=== PATIENT | male | born 1960 | race Caucasian/White ===

== ENCOUNTER 2017-05-08 14:17 | Emergency (ER) | payer MEDICARE, MEDICAID ==
[2017-05-08 15:16] VITALS: BP 121/76
--- NOTE | 2017-05-08 15:16 | ER Document Report ---
ED Medical Screen (RME) - General Mode of Arrival: Wheelchair Information source: Patient TRAVEL OUTSIDE OF THE [place] IN LAST 30 DAYS: No - HPI Patient complains to provider of: Left flank pain Onset: Other - 3 days ago Associated Symptoms: Other - see notes above <TANNER SADLER - Last Filed: 05/08/17 15:29> <BABITAАНДРЕЙMIRLANDE - Last Filed: 05/08/17 18:17> - General Chief Complaint: Flank Pain Stated Complaint: LEFT SIDE PAIN Time Seen by Provider: 05/08/17 14:53 Notes: 56 year old male with history of CVA presents to the ED complaining of sharp left flank pain that started 3 days ago. Patient reports he has never had back pain like this before. Denies history of kidney stones. Patient additionally complains of dysuria, but denies fever, nausea, or vomiting. (TANNER SADLER) - Related Data Allergies/Adverse Reactions: aspirin [Aspirin] Allergy (Unknown, Verified 05/08/17 14:20) Past Medical History - General Information source: Patient - Social History Chew tobacco use (# tins/day): No Frequency of alcohol use: None Drug Abuse: None - Past Medical History Cardiac Medical History: Reports: Hx Hypertension Denies: Hx Heart Attack Pulmonary Medical History: Reports: Hx COPD, Hx Pneumonia Denies: Hx Asthma, Hx Tuberculosis Neurological Medical History: Reports: Hx Cerebrovascular Accident - 1999 right deficitComment Only: Hx Seizures - states no seizure but takes meds for them Endocrine Medical History: Reports: Hx Diabetes Mellitus Type 2 Renal/ Medical History: Reports: Hx End Stage Renal Disease - stage 3. Denies : Hx Peritoneal Dialysis GI Medical History: Reports: Hx Gastroesophageal Reflux Disease. Denies: Hx Hepatitis, Hx Hiatal Hernia, Hx Ulcer Musculoskeltal Medical History: Reports Hx Arthritis - feet Psychiatric Medical History: Reports: Hx Anxiety, Hx Depression Infectious Medical History: Denies: Hx Hepatitis Past Surgical History: Reports: Hx Abdominal Surgery - gastric bypass, Hx Appendectomy - 1966, Hx Cholecystectomy, Hx Gastric Bypass Surgery - 2004, Hx Testicular Surgery. Denies: Hx Open Heart Surgery, Hx Pacemaker - Immunizations Hx Diphtheria, Pertussis, Tetanus Vaccination: Yes <TANNER SADLER - Last Filed: 05/08/17 15:29> Review of Systems - Review of Systems Constitutional: No symptoms reported. denies: Fever EENT: No symptoms reported Cardiovascular: No symptoms reported Respiratory: No symptoms reported Gastrointestinal: No symptoms reported. denies: Nausea, Vomiting Genitourinary: See HPI, Dysuria, Flank pain - left Male Genitourinary: No symptoms reported Musculoskeletal: No symptoms reported Skin: No symptoms reported Hematologic/Lymphatic: No symptoms reported Neurological/Psychological: No symptoms reported -: Yes All other systems reviewed and negative <TANNER SADLER - Last Filed: 05/08/17 15:29> Physical Exam - General General appearance: Alert - HEENT Head: Normocephalic, Atraumatic Eyes: Normal Extraocular movements intact: Yes Pupils: PERRL - Back Back: Normal, Other - No shingles rash. No reproducible tenderness to palpation.. No: CVA tenderness <TANNER SADLER - Last Filed: 05/08/17 15:29> - Vital signs Vitals: Temp Pulse Resp BP Pulse Ox 97.7 F 68 18 146/78 H 92 05/08/17 14:29 05/08/17 14:29 05/08/17 14:29 05/08/17 14:29 05/08/17 14:29 Course - Laboratory Result Diagrams: 05/08/17 13:33 05/08/17 13:33 <TANNER SADLER - Last Filed: 05/08/17 15:29> - Laboratory Result Diagrams: 05/08/17 13:33 05/08/17 13:33 <MIRLANDE MILLER - Last Filed: 05/08/17 18:17> - Vital Signs Vital signs: Temp Pulse Resp BP Pulse Ox 98.9 F 75 17 121/76 100 05/08/17 15:15 05/08/17 15:15 05/08/17 15:15 05/08/17 15:15 05/08/17 15:15 - Laboratory Laboratory results interpreted by me: 05/08/17 05/08/17 05/08/17 13:33 13:33 15:25 RDW 14.8 H Lymphocytes % 11.3 L Creatinine 1.69 H Est GFR ( Amer) 51 L Est GFR (Non-Af Amer) 42 L Direct Bilirubin 0.6 H Alkaline Phosphatase 218 H Urine Protein 100 H Urine Urobilinogen 2.0 H Doctor's Discharge <TANNER SADLER - Last Filed: 05/08/17 15:29> <MIRLANDE MILLER - Last Filed: 05/08/17 18:17> - Discharge Clinical Impression: Low Back pain Condition: Stable Disposition: HOME, SELF-CARE Instructions: Low Back Pain ([facility]) Additional Instructions: As we discussed, your labs look pretty good today. The x-rays do show some arthritis of the back. I prescribed some pain medicine: See the narcotic instructions below. I want you to follow-up with your primary care doctor: Bring a copy of today's labs with you when you go. Return to the emergency room for any worsening pain, fever (temperature greater than 100.4), weakness or numbness to the lower legs. The pain medicine you're taking prescribed as a narcotic. There are several important things you should know about this medicine: 1. This medicine contains Tylenol: It is important that you do not take Tylenol (or acetaminophen) while on this medicine. Tylenol is metabolized by the liver and taking too much Tylenol (acetaminophen) can lay to liver damage and even liver failure. 2. Taking narcotics for too long can lead to physical and mental dependence. Take this medicine only if really needed and in the lowest quantity to achieve pain relief. 3. Do not drink alcohol while on this medicine. Alcohol interacts with narcotics and the combination can be dangerous. 4. Do not drive or operate machinery while on this medicine. 5. Narcotics do cause constipation, so drink plenty of fluids and daily stool softeners. Prescriptions: Oxycodone HCl/Acetaminophen [Percocet 5-325 mg Tablet] 1 - 2 tab PO ASDIR PRN # 15 tablet PRN Reason: Scribe Documentation - Scribe Written by Scribe:: Tomer Blue, 05/08/2017 1543 acting as scribe for :: Lorri <TANNER SADLER - Last Filed: 05/08/17 15:29>
[2017-05-08 15:20] LABS: ABSOLUTE BASOPHILS # (AUTO) 0.1 10^3/uL (0.0-0.2); ABSOLUTE EOSINOPHILS # (AUTO) 0.2 10^3/uL (0.0-0.6); ABSOLUTE MONOCYTES (AUTO) 0.7 10^3/uL (0.1-1.4); ABSOLUTE NEUT (AUTO) 6.6 10^3/uL (1.7-8.2); BASOPHILS % (AUTO) 1.6 % (0-2); EOSINOPHILS % (AUTO) 2.3 % (0-6); HEMOGLOBIN 14.4 g/dL (13.5-17.0); LYMPHOCYTES % (AUTO) 11.3 % (13-45); MEAN CORPUSCULAR HEMOGLOBIN 28.6 pg (27.0-33.4); MEAN CORPUSCULAR HGB CONC 33.6 g/dL (32.0-36.0); MEAN CORPUSCULAR VOLUME 85 fl (80-97); MONOCYTES % (AUTO) 7.6 % (3-13); PLATELET COUNT 247 10^3/uL (150-450); RED BLOOD COUNT 5.03 10^6/uL (4.35-5.55); RED CELL DISTRIBUTION WIDTH 14.8 % (11.5-14.0); SEGMENTED NEUTROPHILS % (AUTO) 77.2 % (42-78); TOTAL CELLS COUNTED % (AUTO) 100 %; WHITE BLOOD COUNT 8.5 10^3/uL (4.0-10.5)
[2017-05-08 15:28] LABS: ALANINE AMINOTRANSFERASE 37 U/L (21-72); ALBUMIN 4.5 g/dL (3.5-5.0); ALKALINE PHOSPHATASE 218 U/L (38-126); ANION GAP 13 (5-19); ASPARTATE AMINO TRANSFERASE 30 U/L (17-59); BILIRUBIN,DIRECT 0.6 mg/dL (0.0-0.4); BILIRUBIN,TOTAL 0.6 mg/dL (0.2-1.3); BLOOD UREA NITROGEN 20 mg/dL (7-20); CALCIUM 9.5 mg/dL (8.4-10.2); CARBON DIOXIDE 23 mmol/L (22-30); CHLORIDE 107 mmol/L (98-107); GLUCOSE 101 mg/dL (75-110); SODIUM 142.8 mmol/L (137-145); TOTAL PROTEIN 8.2 g/dL (6.3-8.2)
[2017-05-08 15:40] LABS: APPEARANCE,URINE CLEAR; BILIRUBIN,URINE NEGATIVE (NEGATIVE); COLOR,URINE YELLOW; GLUCOSE, URINE NEGATIVE (NEGATIVE); KETONES,URINE NEGATIVE (NEGATIVE); LEUKOCYTE ESTERASE,URINE NEGATIVE (NEGATIVE); NITRITE,URINE NEGATIVE (NEGATIVE); PROTEIN,URINE 100 mg/dL (NEGATIVE)
--- NOTE | 2017-05-08 16:11 | ER Document Report ---
ED General - General Chief Complaint: Flank Pain Stated Complaint: LEFT SIDE PAIN Time Seen by Provider: 05/08/17 14:53 Mode of Arrival: Wheelchair Information source: Patient Notes: This is a 56-year-old man with a history of hypertension, diabetes, chronic kidney disease who presents to the emergency room with back pain. Patient denies any fevers, chills, nausea or vomiting. Patient denies kidney stones. He is concerned about his kidneys because of the back pain. Patient denies any new motor weakness. He denies any urinary retention or incontinence. He denies any numbness to the lower extremities. TRAVEL OUTSIDE OF THE [place] IN LAST 30 DAYS: No - HPI Onset: Last week Onset/Duration: Gradual Quality of pain: Dull Severity: Mild Pain Level: 1 Associated symptoms: denies: Nonproductive cough, Fever, Nausea, Vomiting, Shortness of breath Exacerbated by: Movement Relieved by: Remaining still Similar symptoms previously: Yes Recently seen / treated by doctor: No - Related Data Allergies/Adverse Reactions: aspirin [Aspirin] Allergy (Unknown, Verified 05/08/17 14:20) Past Medical History - General Information source: Patient - Social History Smoking Status: Never Smoker Cigarette use (# per day): No Chew tobacco use (# tins/day): No Frequency of alcohol use: None Drug Abuse: None Lives with: Friend Family History: CAD, DM, Hypertension Patient has suicidal ideation: No Patient has homicidal ideation: No - Past Medical History Cardiac Medical History: Reports: Hx Hypertension Denies: Hx Heart Attack Pulmonary Medical History: Reports: Hx COPD, Hx Pneumonia Denies: Hx Asthma, Hx Tuberculosis Neurological Medical History: Reports: Hx Cerebrovascular Accident - 1999 right deficitComment Only: Hx Seizures - states no seizure but takes meds for them Endocrine Medical History: Reports: Hx Diabetes Mellitus Type 2 Renal/ Medical History: Reports: Hx End Stage Renal Disease - stage 3. Denies : Hx Peritoneal Dialysis GI Medical History: Reports: Hx Gastroesophageal Reflux Disease. Denies: Hx Hepatitis, Hx Hiatal Hernia, Hx Ulcer Musculoskeltal Medical History: Reports Hx Arthritis - feet Psychiatric Medical History: Reports: Hx Anxiety, Hx Depression Infectious Medical History: Denies: Hx Hepatitis Past Surgical History: Reports: Hx Abdominal Surgery - gastric bypass, Hx Appendectomy - 1966, Hx Cholecystectomy, Hx Gastric Bypass Surgery - 2004, Hx Testicular Surgery. Denies: Hx Open Heart Surgery, Hx Pacemaker - Immunizations Hx Diphtheria, Pertussis, Tetanus Vaccination: Yes Hx Pneumococcal Vaccination: 02/16/12 Review of Systems - Review of Systems Constitutional: denies: Chills, Fever EENT: No symptoms reported Cardiovascular: No symptoms reported Respiratory: No symptoms reported Gastrointestinal: No symptoms reported Genitourinary: No symptoms reported Male Genitourinary: No symptoms reported Musculoskeletal: See HPI Skin: No symptoms reported Hematologic/Lymphatic: No symptoms reported Neurological/Psychological: Other - Negative for saddle anesthesia, negative for urinary incontinence or urinary retention, no change in motor ability. denies: Gait changes Physical Exam - Vital signs Vitals: Temp Pulse Resp BP Pulse Ox 97.7 F 68 18 146/78 H 92 05/08/17 14:29 05/08/17 14:29 05/08/17 14:29 05/08/17 14:29 05/08/17 14:29 Notes: Physical exam: GENERAL: The 6-year-old man, alert and oriented 3, no acute distress HEAD: Atraumatic, normocephalic. EYES: Pupils equal round and reactive to light, extraocular movements intact, sclera anicteric, conjunctiva are normal. ENT: TMs normal, nares patent, oropharynx clear without exudates. Moist mucous membranes. NECK: Normal range of motion, supple without obvious mass or JVD. LUNGS: Breath sounds clear to auscultation bilaterally and equal. No wheezes rales or rhonchi. HEART: Regular rate and rhythm without murmurs, rubs or gallops. ABDOMEN: Soft, normoactive bowel sounds. No tenderness to palpation. No guarding, no rebound. No masses appreciated. Back: Positive paraspinal tenderness in the thoracic and lumbar region. There is no obvious deformities of the spinous processes, there is no crepitus or step -offs. Patient is not tender in the CVA area. EXTREMITIES: Normal range of motion, no pitting or edema. No clubbing or cyanosis. NEUROLOGICAL: Cranial nerves II through XII grossly intact. Normal speech, moving all extremities. No significant weakness to the lower extremities. The patient does state he had some residual right-sided weakness which should improve significantly with the CVA. Normal sensory in the saddle area. PSYCH: Normal mood, normal affect. SKIN: Warm, Dry, normal turgor, no rashes or lesions noted. Course - Vital Signs Vital signs: Temp Pulse Resp BP Pulse Ox 98.9 F 75 17 121/76 100 05/08/17 15:15 05/08/17 15:15 05/08/17 15:15 05/08/17 15:15 05/08/17 15:15 - Laboratory Result Diagrams: 05/08/17 13:33 05/08/17 13:33 Laboratory results interpreted by me: 05/08/17 05/08/17 05/08/17 13:33 13:33 15:25 RDW 14.8 H Lymphocytes % 11.3 L Creatinine 1.69 H Est GFR ( Amer) 51 L Est GFR (Non-Af Amer) 42 L Direct Bilirubin 0.6 H Alkaline Phosphatase 218 H Urine Protein 100 H Urine Urobilinogen 2.0 H - Diagnostic Test Radiology reviewed: Image reviewed, Reports reviewed - X-rays of the T and L- spine show spondylolisthesis Discharge - Discharge Clinical Impression: Low Back pain Condition: Stable Disposition: HOME, SELF-CARE Instructions: Low Back Pain ([facility]) Additional Instructions: As we discussed, your labs look pretty good today. The x-rays do show some arthritis of the back. I prescribed some pain medicine: See the narcotic instructions below. I want you to follow-up with your primary care doctor: Bring a copy of today's labs with you when you go. Return to the emergency room for any worsening pain, fever (temperature greater than 100.4), weakness or numbness to the lower legs. The pain medicine you're taking prescribed as a narcotic. There are several important things you should know about this medicine: 1. This medicine contains Tylenol: It is important that you do not take Tylenol (or acetaminophen) while on this medicine. Tylenol is metabolized by the liver and taking too much Tylenol (acetaminophen) can lay to liver damage and even liver failure. 2. Taking narcotics for too long can lead to physical and mental dependence. Take this medicine only if really needed and in the lowest quantity to achieve pain relief. 3. Do not drink alcohol while on this medicine. Alcohol interacts with narcotics and the combination can be dangerous. 4. Do not drive or operate machinery while on this medicine. 5. Narcotics do cause constipation, so drink plenty of fluids and daily stool softeners. Prescriptions: Oxycodone HCl/Acetaminophen [Percocet 5-325 mg Tablet] 1 - 2 tab PO ASDIR PRN # 15 tablet PRN Reason:
--- NOTE | 2017-05-08 17:36 | RADIOLOGY REPORT (SQ) ---
EXAM DESCRIPTION: L SPINE WHOLE COMPLETED DATE/TIME: 05/08/2017 5:15 pm REASON FOR STUDY: back pain COMPARISON: CT of the abdomen and pelvis 02/05/2015 NUMBER OF VIEWS: Five views including obliques. TECHNIQUE: AP, lateral, oblique, and sacral radiographic images acquired of the lumbar spine. LIMITATIONS: None. FINDINGS: MINERALIZATION: Osteopenia. SEGMENTATION: Normal. No transitional anatomy. ALIGNMENT: S-shaped scoliotic curvature, stable. VERTEBRAE: Maintained height. No fracture or worrisome bone lesion. DISCS: Multilevel disc space narrowing with osteophytes. POSTERIOR ELEMENTS: Pedicles and facets are intact. No pars defect or posterior arch defects. Facet arthropathy is present. HARDWARE: None in the spine. PARASPINAL SOFT TISSUES: A caval filter is stable in position relative to CT imaging performed in 201 5. PELVIS: Intact as visualized. No fractures or worrisome bone lesions. SI joints intact. OTHER: No other significant finding. IMPRESSION: SPONDYLOSIS WITHOUT BONE LESION OR FRACTURE. TECHNICAL DOCUMENTATION: JOB ID: [id number] [employer]- All Rights Reserved Reading location - IP/workstation name: [email or web address]--[email or web address]
--- NOTE | 2017-05-08 17:39 | RADIOLOGY REPORT (SQ) ---
EXAM DESCRIPTION: T SPINE AP/LAT COMPLETED DATE/TIME: 05/08/2017 5:15 pm REASON FOR STUDY: back pain COMPARISON: CT chest 02/05/2015 NUMBER OF VIEWS: Two views. TECHNIQUE: AP and lateral radiographic images acquired of the thoracic spine. LIMITATIONS: None. FINDINGS: MINERALIZATION: Osteopenia. ALIGNMENT: Normal. No scoliosis. VERTEBRAE: No fracture or bone lesion. Maintained height, normal segmentation. DISCS: Multilevel disc space narrowing with osteophytes. HARDWARE: None in the spine. MEDIASTINUM AND SOFT TISSUES: Normal heart size and aortic contour. No soft tissue abnormality. VISUALIZED LUNG ROCA: Clear. OTHER: No other significant finding. IMPRESSION: SPONDYLOSIS WITHOUT BONE LESION OR FRACTURE. TECHNICAL DOCUMENTATION: JOB ID: [id number] [employer]- All Rights Reserved Reading location - IP/workstation name: [email or web address]
== END 2017-05-08 17:56 | disposition home or self-care (01) ==
LOC: ER 14:17
DX: M47.9 Spondylosis, unspecified (principal); M54.5 Low back pain; I10 Essential (primary) hypertension; E11.9 Type 2 diabetes mellitus without complications; J44.9 Chronic obstructive pulmonary disease, unspecified; Z88.6 Allergy status to analgesic agent; Z98.84 Bariatric surgery status
CPT/HCPCS: 36415; 72070; 72110; 80053; 81001; 85025; 99283

== ENCOUNTER → 2018-04-04 | Outpatient (CLI) | payer MEDICARE, MEDICAID ==
[2018-04-04 11:43] LABS: ABSOLUTE BASOPHILS # (AUTO) 0.1 10^3/uL (0.0-0.2); ABSOLUTE EOSINOPHILS # (AUTO) 0.2 10^3/uL (0.0-0.6); ABSOLUTE LYMPHOCYTES (AUTO) 0.7 10^3/uL (0.5-4.7); ABSOLUTE MONOCYTES (AUTO) 0.4 10^3/uL (0.1-1.4); ABSOLUTE NEUT (AUTO) 4.6 10^3/uL (1.7-8.2); EOSINOPHILS % (AUTO) 2.8 % (0-6); HEMATOCRIT 42.3 % (37.9-51.0); HEMOGLOBIN 14.2 g/dL (13.5-17.0); LYMPHOCYTES % (AUTO) 11.9 % (13-45); MEAN CORPUSCULAR HEMOGLOBIN 28.4 pg (27.0-33.4); MEAN CORPUSCULAR HGB CONC 33.5 g/dL (32.0-36.0); MEAN CORPUSCULAR VOLUME 85 fl (80-97); PLATELET COUNT 204 10^3/uL (150-450); RED CELL DISTRIBUTION WIDTH 14.3 % (11.5-14.0); SEGMENTED NEUTROPHILS % (AUTO) 77.3 % (42-78); TOTAL CELLS COUNTED % (AUTO) 100 %; WHITE BLOOD COUNT 5.9 10^3/uL (4.0-10.5)
--- NOTE | 2018-04-04 11:52 | RADIOLOGY REPORT (SQ) ---
EXAM DESCRIPTION: U/S RETROPERITON (RENAL/AORTA) COMPLETED DATE/TIME: 04/04/2018 11:29 am REASON FOR STUDY: CKD III (N18.3) N18.3 CHRONIC KIDNEY DISEASE, STAGE 3 (MODERATE) R80.9 PROTEINUR IA, UNSPECIFIED COMPARISON: None. TECHNIQUE: Dynamic and static grayscale images acquired of the kidneys and bladder and recorded on P ACS. Additional selected color Doppler and spectral images recorded. LIMITATIONS: None. FINDINGS: RIGHT KIDNEY: The right kidney measures 12.5 cm, normal size. Mild increased echogenicit y of the kidney, see suggests underlying medical renal disease. Mild dilatation of the renal pelvis is suggested. LEFT KIDNEY: The left kidney measures 11.9 cm, normal Normal size. Mild increased echogenicity of t he kidney suggests underlying medical renal disease. Normal echogenicity. No solid or suspicious mas ses. No hydronephrosis. No calcifications. BLADDER: No masses. OTHER FINDINGS: No other significant finding. IMPRESSION: 1. Mild increased echogenicity of the kidneys, suggests underlying medical renal diseas e. 2. Mild dilatation of the right renal pelvis, etiology is not identified on this examination. TECHNICAL DOCUMENTATION: JOB ID: [id number] [employer]- All Rights Reserved Reading location - IP/workstation name: [email or web address]
[2018-04-04 12:05] LABS: ALBUMIN 4.2 g/dL (3.5-5.0); ANION GAP 12 (5-19); BLOOD UREA NITROGEN 21 mg/dL (7-20); CALCIUM 9.2 mg/dL (8.4-10.2); CARBON DIOXIDE 24 mmol/L (22-30); CHLORIDE 102 mmol/L (98-107); GLUCOSE 170 mg/dL (75-110); PHOSPHORUS 4.1 mg/dL (2.5-4.5); POTASSIUM 4.4 mmol/L (3.6-5.0); SODIUM 137.7 mmol/L (137-145)
[2018-04-05 12:38] LABS: CREATININE URINE 92.9 mg/dL (Not Estab.)
[2018-04-05 14:01] LABS: MICROALBUMIN URINE 1114.1 ug/mL (Not Estab.)
== END ==
LOC: RAD 10:14
PROVIDERS: ATTEND Internal Medicine Nephrology
DX: I12.9 Hypertensive chronic kidney disease with stage 1 through stage 4 chronic kidney disease, or unspecified chronic kidney disease (principal); N18.3 Chronic kidney disease, stage 3 (moderate); E11.22 Type 2 diabetes mellitus with diabetic chronic kidney disease; R80.9 Proteinuria, unspecified
CPT/HCPCS: 36415; 76770; 80069; 82043; 82306; 82570; 83970; 85025

== ENCOUNTER → 2018-11-21 | Outpatient (CLI) | payer MEDICARE, MEDICAID ==
[2018-11-21 10:38] LABS: ABSOLUTE BASOPHILS # (AUTO) 0.1 10^3/uL (0.0-0.2); ABSOLUTE EOSINOPHILS # (AUTO) 0.3 10^3/uL (0.0-0.6); ABSOLUTE MONOCYTES (AUTO) 0.6 10^3/uL (0.1-1.4); ABSOLUTE NEUT (AUTO) 6.8 10^3/uL (1.7-8.2); BASOPHILS % (AUTO) 1.1 % (0-2); EOSINOPHILS % (AUTO) 3.2 % (0-6); HEMATOCRIT 44.1 % (37.9-51.0); HEMOGLOBIN 14.6 g/dL (13.5-17.0); LYMPHOCYTES % (AUTO) 10.9 % (13-45); MEAN CORPUSCULAR HEMOGLOBIN 28.3 pg (27.0-33.4); MEAN CORPUSCULAR HGB CONC 33.1 g/dL (32.0-36.0); MEAN CORPUSCULAR VOLUME 85 fl (80-97); PLATELET COUNT 231 10^3/uL (150-450); RED BLOOD COUNT 5.16 10^6/uL (4.35-5.55); RED CELL DISTRIBUTION WIDTH 14.8 % (11.5-14.0); SEGMENTED NEUTROPHILS % (AUTO) 77.8 % (42-78); TOTAL CELLS COUNTED % (AUTO) 100 %; WHITE BLOOD COUNT 8.7 10^3/uL (4.0-10.5)
[2018-11-21 10:41] LABS: APPEARANCE,URINE CLEAR; BILIRUBIN,URINE NEGATIVE (NEGATIVE); COLOR,URINE STRAW; GLUCOSE, URINE NEGATIVE (NEGATIVE); KETONES,URINE NEGATIVE (NEGATIVE); LEUKOCYTE ESTERASE,URINE NEGATIVE (NEGATIVE); NITRITE,URINE NEGATIVE (NEGATIVE); PROTEIN,URINE 30 mg/dL (NEGATIVE); URINE SPECIFIC GRAVITY 1.006
[2018-11-21 11:05] LABS: ALBUMIN 4.9 g/dL (3.5-5.0); ANION GAP 16 (5-19); BLOOD UREA NITROGEN 20 mg/dL (7-20); CALCIUM 9.8 mg/dL (8.4-10.2); CARBON DIOXIDE 23 mmol/L (22-30); CHLORIDE 101 mmol/L (98-107); GLUCOSE 103 mg/dL (75-110); PHOSPHORUS 3.9 mg/dL (2.5-4.5); POTASSIUM 4.3 mmol/L (3.6-5.0)
[2018-11-21 11:43] LABS: UR PRO/CREAT RATIO RESULT 2.6 mg/mg (0.0-0.2); URINE CREATININE 28.5 mg/dL (22-328); URINE PROTEIN 72.7 mg/dL (<12)
== END ==
LOC: OD 09:48
PROVIDERS: ATTEND Internal Medicine Nephrology
DX: I12.9 Hypertensive chronic kidney disease with stage 1 through stage 4 chronic kidney disease, or unspecified chronic kidney disease (principal); N18.3 Chronic kidney disease, stage 3 (moderate); R80.9 Proteinuria, unspecified; E11.21 Type 2 diabetes mellitus with diabetic nephropathy
CPT/HCPCS: 36415; 80069; 81001; 82306; 82570; 83970; 84156; 85025

== ENCOUNTER → 2018-12-05 | Outpatient (CLI) | payer MEDICARE, MEDICAID ==
--- NOTE | 2018-12-05 16:20 | RADIOLOGY REPORT (SQ) ---
EXAM DESCRIPTION: NM PARATHYROID IMAGING COMPLETED DATE/TIME: 12/05/2018 12:47 pm REASON FOR STUDY: (E21.3)HYPERPARATHYROIDISM, UNSPECIFIED E21.3 HYPERPARATHYROIDISM, UNSPECIFIED COMPARISON: None. RADIONUCLIDE AND DOSE: 21.7 millicuries Tc-99m Sestamibi. The route of agent administration: Intravenous ADDITIONAL DRUGS AND DOSES: None. TECHNIQUE: Early and delayed images of the neck acquired following radionuclide administration. LIMITATIONS: None. FINDINGS: Thyroid: Normal size. Homogeneous activity. Normal washout. No focal lesions. Parathyroid: No retained activity in the thyroid or elsewhere in the neck to indicate a parathyroid a denoma. Other: No other significant findings. IMPRESSION: NORMAL STUDY. NO EVIDENCE OF PARATHYROID ADENOMA. TECHNICAL DOCUMENTATION: JOB ID: [id number] [employer]- All Rights Reserved Reading location - IP/workstation name: [email or web address]
== END ==
LOC: RAD 09:23
PROVIDERS: ATTEND Internal Medicine Nephrology
DX: E21.3 Hyperparathyroidism, unspecified (principal); E11.22 Type 2 diabetes mellitus with diabetic chronic kidney disease; I12.9 Hypertensive chronic kidney disease with stage 1 through stage 4 chronic kidney disease, or unspecified chronic kidney disease; N18.3 Chronic kidney disease, stage 3 (moderate); R80.9 Proteinuria, unspecified; R60.9 Edema, unspecified
CPT/HCPCS: 78070; A9500; Q9969

== ENCOUNTER 2019-11-14 16:01 | Emergency (ER) | payer MEDICARE, MEDICAID ==
--- NOTE | 2019-11-14 17:27 | ER Document Report ---
ED Medical Screen (RME) - General Chief Complaint: General Weakness Stated Complaint: WEAKNESS Time Seen by Provider: 11/14/19 16:58 Primary Care Provider: RICHARD FUENTES DO [Primary Care Provider] - Follow up as needed Mode of Arrival: Ambulatory TRAVEL OUTSIDE OF THE [place] IN LAST 30 DAYS: No - HPI Notes: 11/14/19 17:14 59-year-old male with a history of COPD, hypertension, CVA, diabetes and morbid obesity who is oxygen dependent on 3 L nasal cannula presents the emergency room for increased weakness in his bilateral knees and pain in his bilateral calves that is become progressively worse over the last couple weeks right greater than left. Patient states he has trouble just getting in and out of his bed to use the restroom. He has overall increased general malaise. Patient is a nrr-ebrqdnq-oukhxpqec diabetic. Patient states he tried a couple of Motrins without relief. Denies any trauma. Patient has noticed the weakness becoming worse especially in the last couple of days. Patient is not very mobile, is not on any anticoagulant therapy, is complaining of left greater than right calf pain. Denies any chest pain, worsening shortness of breath, nausea, vomiting, diarrhea. I have greeted and performed a rapid initial assessment of this patient. A comprehensive ED assessment and evaluation of the patient, analysis of test results and completion of the medical decision making process will be conducted by additional ED providers. PHYSICAL EXAMINATION: GENERAL: Chronically ill morbidly obese and in mild distress CV: s1, s2 regular LUNGS: No respiratory distress, diminished bs in lower lobes, on oxygen Musculoskeletal: Tenderness to bilateral knees on palpation, pain with flexion and extension. Tenderness to calf on palpation, positive Homans sign on right. NEUROLOGICAL: Normal speech, normal gait. SKIN: Warm, Dry, normal turgor, no rashes or lesions noted. 11/14/19 17:15 - Related Data Allergies/Adverse Reactions: aspirin [Aspirin] Allergy (Unknown, Verified 05/08/17 14:20) Past Medical History - Social History Chew tobacco use (# tins/day): No Frequency of alcohol use: None Drug Abuse: None - Past Medical History Cardiac Medical History: Reports: Hx Hypertension Denies: Hx Heart Attack Pulmonary Medical History: Reports: Hx COPD, Hx Pneumonia Denies: Hx Asthma, Hx Tuberculosis Neurological Medical History: Reports: Hx Cerebrovascular Accident - 1999 right deficitComment Only: Hx Seizures - states no seizure but takes meds for them Endocrine Medical History: Reports: Hx Diabetes Mellitus Type 2 Renal/ Medical History: Reports: Hx End Stage Renal Disease - stage 3. Denies: Hx Peritoneal Dialysis GI Medical History: Reports: Hx Gastroesophageal Reflux Disease. Denies: Hx Hepatitis, Hx Hiatal Hernia, Hx Ulcer Musculoskeltal Medical History: Reports Hx Arthritis - feet Psychiatric Medical History: Reports: Hx Anxiety, Hx Depression Infectious Medical History: Denies: Hx Hepatitis Past Surgical History: Reports: Hx Abdominal Surgery - gastric bypass, Hx Appendectomy - 1966, Hx Cholecystectomy, Hx Gastric Bypass Surgery - 2004, Hx Testicular Surgery. Denies: Hx Open Heart Surgery, Hx Pacemaker - Immunizations Hx Diphtheria, Pertussis, Tetanus Vaccination: Yes Physical Exam - Vital signs Vitals: Temp Pulse Resp BP Pulse Ox 98.2 F 60 18 127/66 H 96 11/14/19 16:19 11/14/19 16:19 11/14/19 16:19 11/14/19 16:19 11/14/19 16:19 Course - Vital Signs Vital signs: Temp Pulse Resp BP Pulse Ox 98.2 F 60 18 127/66 H 96 11/14/19 16:19 11/14/19 16:19 11/14/19 16:19 11/14/19 16:19 11/14/19 16:19 Doctor's Discharge - Discharge Referrals: RICHARD FUENTES DO [Primary Care Provider] - Follow up as needed
[2019-11-14 18:02] LABS: ABSOLUTE BASOPHILS # (AUTO) 0.1 10^3/uL (0.0-0.2); ABSOLUTE EOSINOPHILS # (AUTO) 0.2 10^3/uL (0.0-0.6); ABSOLUTE LYMPHOCYTES (AUTO) 0.6 10^3/uL (0.5-4.7); ABSOLUTE MONOCYTES (AUTO) 0.6 10^3/uL (0.1-1.4); BASOPHILS % (AUTO) 0.9 % (0-2); EOSINOPHILS % (AUTO) 2.2 % (0-6); HEMATOCRIT 35.1 % (37.9-51.0); HEMOGLOBIN 11.5 g/dL (13.5-17.0); LYMPHOCYTES % (AUTO) 8.1 % (13-45); MEAN CORPUSCULAR HEMOGLOBIN 27.8 pg (27.0-33.4); MEAN CORPUSCULAR HGB CONC 32.7 g/dL (32.0-36.0); MEAN CORPUSCULAR VOLUME 85 fl (80-97); MONOCYTES % (AUTO) 8.6 % (3-13); PLATELET COUNT 213 10^3/uL (150-450); RED BLOOD COUNT 4.13 10^6/uL (4.35-5.55); RED CELL DISTRIBUTION WIDTH 15.7 % (11.5-14.0); SEGMENTED NEUTROPHILS % (AUTO) 80.2 % (42-78); TOTAL CELLS COUNTED % (AUTO) 100 %; WHITE BLOOD COUNT 7.5 10^3/uL (4.0-10.5)
[2019-11-14 18:20] LABS: ALBUMIN 4.1 g/dL (3.5-5.0); ALKALINE PHOSPHATASE 203 U/L (38-126); ANION GAP 12 (5-19); ASPARTATE AMINO TRANSFERASE 22 U/L (17-59); BILIRUBIN,DIRECT 0.5 mg/dL (0.0-0.4); BILIRUBIN,TOTAL 0.8 mg/dL (0.2-1.3); BLOOD UREA NITROGEN 29 mg/dL (7-20); CALCIUM 9.2 mg/dL (8.4-10.2); CARBON DIOXIDE 23 mmol/L (22-30); CHLORIDE 102 mmol/L (98-107); GLUCOSE 91 mg/dL (75-110); POTASSIUM 4.4 mmol/L (3.6-5.0); TOTAL PROTEIN 7.1 g/dL (6.3-8.2)
--- NOTE | 2019-11-14 18:33 | RADIOLOGY REPORT (SQ) ---
EXAM DESCRIPTION: KNEE BILATERAL 1-2 VIEWS IMAGES COMPLETED DATE/TIME: 11/14/2019 5:13 pm REASON FOR STUDY: bilateral knee pain, no trauma. . COMPARISON: None. NUMBER OF VIEWS: Six views. TECHNIQUE: AP and lateral bilateral knees. LIMITATIONS: None. FINDINGS: MINERALIZATION: Normal. RIGHT KNEE BONES: No acute fracture. No worrisome bone lesions. MEDIAL COMPARTMENT: Small marginal osteophytes. Joint space narrowing. No chondrocalcinosis. LATERAL COMPARTMENT: Small marginal osteophytes. No joint space narrowing. No chondrocalcinosis. PATELLOFEMORAL COMPARTMENT: Marginal osteophytes. No joint space narrowing. No chondrocalcinosis . LEFT KNEE BONES: No acute fracture. No worrisome bone lesions. MEDIAL COMPARTMENT: Marginal osteophytes. Joint space narrowing. No chondrocalcinosis. LATERAL COMPARTMENT: Marginal osteophytes. No joint space narrowing. No chondrocalcinosis. PATELLOFEMORAL COMPARTMENT: No significant osteophytes. No joint space narrowing. No chondrocalc inosis. IMPRESSION: Moderate tricompartmental osteoarthritis bilateral knees, right greater than left. TECHNICAL DOCUMENTATION: JOB ID: [id number] [employer]- All Rights Reserved Reading location - IP/workstation name: [email or web address]
--- NOTE | 2019-11-14 21:23 | RADIOLOGY REPORT (SQ) ---
EXAM DESCRIPTION: US EXTREMITY VEINS BILATERAL COMPLETED DATE/TME: 11/14/2019 17:07 CLINICAL HISTORY: bilateral calf pain,immobile, no blood thinner COMPARISON: None Available TECHNIQUE: Grayscale, color Doppler, and Doppler interrogation images of the common femoral vein, superficial femoral vein, popliteal, and posterior tibial veins of the right and left lower extremity were submitted. FINDINGS: There is partial compressibility of the right common femoral vein with peripheral echogenic material compatible with nonocclusive thrombus, this could be secondary to chronic DVT changes. The distal superficial femoral veins were not well delineated. There is subcutaneous edema of both lower extremities. All of the remaining above-mentioned venous structures demonstrate normal spontaneous flow with respiratory phasicity and were fully compressible. IMPRESSION: Non-occlusive echogenic material within the periphery of the right common femoral vein could be secondary to chronic DVT changes. No sonographic evidence of acute DVT within the left lower extremity.
[2019-11-14] MEDS ORDERED: APIXABAN 2.5 MG TABLET PO ONE (22:17)
[2019-11-14] MEDS ORDERED: NORMAL SALINE 500 ML IV ONE (22:17)
--- NOTE | 2019-11-14 22:19 | ER Document Report ---
ED General - General Chief Complaint: General Weakness Stated Complaint: WEAKNESS Time Seen by Provider: 11/14/19 16:58 Primary Care Provider: RICHARD FUENTES DO [Primary Care Provider] - Follow up as needed Mode of Arrival: Ambulatory TRAVEL OUTSIDE OF THE [place] IN LAST 30 DAYS: No - HPI Patient complains to provider of: leg pain Notes: 59 y/o presenting to ED for bilateral leg pain but R>L this has been ongoing for multiple days he states it is getting hard for him to move around due to the leg pain although he is currently able to walk at his baseline he denies fever, chills he denies cough or vomiting he denies chest pain or sob he is chronically on 3L on nasal cannula for COPD he denies abd pain or back pain he denies blood in stool he denies falling at home or being a fall risk he has had PE before but is not currently anticoagulated - Related Data Allergies/Adverse Reactions: aspirin [Aspirin] Allergy (Unknown, Verified 05/08/17 14:20) Past Medical History - Social History Smoking Status: Never Smoker Chew tobacco use (# tins/day): No Frequency of alcohol use: None Drug Abuse: None Family History: CAD, DM, Hypertension - Past Medical History Cardiac Medical History: Reports: Hx Hypertension Denies: Hx Heart Attack Pulmonary Medical History: Reports: Hx COPD, Hx Pneumonia Denies: Hx Asthma, Hx Tuberculosis Neurological Medical History: Reports: Hx Cerebrovascular Accident - 1999 right deficitComment Only: Hx Seizures - states no seizure but takes meds for them Endocrine Medical History: Reports: Hx Diabetes Mellitus Type 2 Renal/ Medical History: Reports: Hx End Stage Renal Disease - stage 3. Denies: Hx Peritoneal Dialysis GI Medical History: Reports: Hx Gastroesophageal Reflux Disease. Denies: Hx Hepatitis, Hx Hiatal Hernia, Hx Ulcer Musculoskeletal Medical History: Reports Hx Arthritis - feet Psychiatric Medical History: Reports: Hx Anxiety, Hx Depression Infectious Medical History: Denies: Hx Hepatitis Past Surgical History: Reports: Hx Abdominal Surgery - gastric bypass, Hx Appendectomy - 1966, Hx Cholecystectomy, Hx Gastric Bypass Surgery - 2004, Hx Testicular Surgery. Denies: Hx Open Heart Surgery, Hx Pacemaker - Immunizations Hx Diphtheria, Pertussis, Tetanus Vaccination: Yes Hx Pneumococcal Vaccination: 02/16/12 Review of Systems - Review of Systems Constitutional: Weakness EENT: No symptoms reported Cardiovascular: No symptoms reported Respiratory: No symptoms reported Gastrointestinal: No symptoms reported Genitourinary: No symptoms reported Male Genitourinary: No symptoms reported Musculoskeletal: Leg swelling, Other - leg pain Skin: No symptoms reported Hematologic/Lymphatic: No symptoms reported Neurological/Psychological: No symptoms reported Physical Exam - Vital signs Vitals: Temp Pulse Resp BP Pulse Ox 98.2 F 60 18 127/66 H 96 11/14/19 16:19 11/14/19 16:19 11/14/19 16:19 11/14/19 16:19 11/14/19 16:19 Interpretation: Normal - General General appearance: Alert, Other - appears chronically weak - HEENT Head: Normocephalic, Atraumatic Eyes: Normal Pupils: PERRL - Respiratory Respiratory status: No respiratory distress Chest status: Nontender Breath sounds: Normal Chest palpation: Normal - Cardiovascular Rhythm: Regular Heart sounds: Normal auscultation Murmur: No - Abdominal Inspection: Normal Distension: No distension Bowel sounds: Normal Tenderness: Nontender Organomegaly: No organomegaly - Back Back: Normal, Nontender - Extremities General upper extremity: Normal inspection, Nontender, Normal color, Normal ROM, Normal temperature General lower extremity: Normal inspection, Nontender, Normal color, Normal ROM, Normal temperature, Normal weight bearing. No: Veena's sign Notes: right knee is tender with ranging and has mild calf swelling compared to L - Neurological Neuro grossly intact: Yes Cognition: Normal Orientation: AAOx4 [place] Coma Scale Eye Opening: Spontaneous [place] Coma Scale Verbal: Oriented [place] Coma Scale Motor: Obeys Commands [place] Coma Scale Total: 15 Speech: Normal Motor strength normal: LUE, RUE, LLE, RLE Sensory: Normal - Psychological Associated symptoms: Normal affect, Normal mood - Skin Skin Temperature: Warm Skin Moisture: Dry Skin Color: Normal Course - Re-evaluation Re-evalutation: 11/14/19 22:20 patient w/ DVT noted on US labs w/ mild YOON from baseline will hydrate w/ 500 cc ivf bolus have discussed risk/benefits of anticoagulation w/ patient and he wishes to proceed will start renally dosed eliquis at 2.5 bid -> 1st dose in ED will anticipate dc as he appears at his respiratory baseline - Vital Signs Vital signs: Temp Pulse Resp BP Pulse Ox 98.2 F 60 18 127/66 H 96 11/14/19 16:19 11/14/19 16:19 11/14/19 16:19 11/14/19 16:19 11/14/19 16:19 - Laboratory Result Diagrams: 11/14/19 17:41 11/14/19 17:41 Laboratory results interpreted by me: 11/14/19 11/14/19 11/14/19 17:41 17:41 21:23 RBC 4.13 L Hgb 11.5 L Hct 35.1 L RDW 15.7 H Lymph % (Auto) 8.1 L Seg Neutrophils % 80.2 H Sodium 136.7 L BUN 29 H Creatinine 2.48 H Est GFR ( Amer) 32 L Est GFR (MDRD) Non-Af 27 L POC Glucose 121 H Direct Bilirubin 0.5 H Alkaline Phosphatase 203 H - Diagnostic Test Radiology reviewed: Reports reviewed Discharge - Discharge Clinical Impression: On home O2, YOON (acute kidney injury) DVT (deep venous thrombosis) Qualifiers: DVT location: lower extremity Affected thrombotic vein of extremity: unspecified vein of extremity Chronicity: unspecified Laterality: right Qualified Code(s): I82.401 - Acute embolism and thrombosis of unspecified deep veins of right lower extremity Condition: Stable Disposition: HOME, SELF-CARE Instructions: DVT Outpatient Treatment ([facility]) Additional Instructions: please take eliquis as directed and follow up with primary care provider as an outpatient Return to the ED with worsening symptoms or concerns Look for blood in stool and seek medical attention if you fall or injure yourself Prescriptions: Apixaban [Eliquis 2.5 mg Tablet] 2.5 mg PO BID #60 tablet Referrals: RICHARD FUENTES DO [Primary Care Provider] - Follow up as needed
[2019-11-14 23:31] VITALS: BP 140/74
== END 2019-11-14 23:24 | disposition home or self-care (01) ==
LOC: ER 16:01
DX: I82.401 Acute embolism and thrombosis of unspecified deep veins of right lower extremity (principal); M17.0 Bilateral primary osteoarthritis of knee; N17.9 Acute kidney failure, unspecified; M79.604 Pain in right leg; M79.605 Pain in left leg; R53.1 Weakness; M79.89 Other specified soft tissue disorders; I10 Essential (primary) hypertension; E11.9 Type 2 diabetes mellitus without complications; J44.9 Chronic obstructive pulmonary disease, unspecified; Z98.84 Bariatric surgery status; Z99.81 Dependence on supplemental oxygen; Z86.711 Personal history of pulmonary embolism; Z88.8 Allergy status to other drugs, medicaments and biological substances
CPT/HCPCS: 99285; 36415; 82962; 85025; 80053; 93970; 73560; J7040; A9270

== ENCOUNTER 2019-11-26 22:14 | Emergency (ER) | payer MEDICARE, MEDICAID ==
--- NOTE | 2019-11-26 22:37 | ER Document Report ---
ED Medical Screen (RME) - General Stated Complaint: RIGHT KNEE PAIN Time Seen by Provider: 11/26/19 22:29 Primary Care Provider: RICHARD FUENTES DO [Primary Care Provider] - Follow up as needed Mode of Arrival: Wheelchair Information source: Patient, Emergency Med Personnel Notes: HPI; 59-year-old male was brought to the emergency room by EMS for generalized weakness. Patient states he was not able to get up and walk to the bathroom due to weakness and defecated all over the chair and then defecated all over the bathroom. States he was unable to get up on his own and the family called EMS. He denies any shortness of breath, no difficulty breathing, no chest pain. States he has chronic right knee pain which is not any different than his normal pain. Is on blood thinners for a right leg DVT. He denies any recent travel. He denies any COVID-19 exposure. PE: He is alert and oriented x3. Mild distress noted. Lungs: Clear to auscultation without rales, rhonchi, wheezes. Heart regular rate rhythm without murmurs, rubs, gallops. Pale conjunctiva. I have greeted and performed a rapid initial assessment of this patient. A comprehensive ED assessment and evaluation of the patient, analysis of test results and completion of the medical decision making process will be conducted by additional ED providers. I have specifically instructed the patient or family members with the patient to immediately return to any nursing staff should anything change in the patient's condition or with their chief complaint. TRAVEL OUTSIDE OF THE [place] IN LAST 30 DAYS: No - Related Data Allergies/Adverse Reactions: aspirin [Aspirin] Allergy (Unknown, Verified 05/08/17 14:20) Past Medical History - Past Medical History Cardiac Medical History: Reports: Hx Hypertension Denies: Hx Heart Attack Pulmonary Medical History: Reports: Hx COPD, Hx Pneumonia Denies: Hx Asthma, Hx Tuberculosis Neurological Medical History: Reports: Hx Cerebrovascular Accident - 1999 right deficitComment Only: Hx Seizures - states no seizure but takes meds for them Endocrine Medical History: Reports: Hx Diabetes Mellitus Type 2 Renal/ Medical History: Reports: Hx End Stage Renal Disease - stage 3. Denies: Hx Peritoneal Dialysis GI Medical History: Reports: Hx Gastroesophageal Reflux Disease. Denies: Hx Hepatitis, Hx Hiatal Hernia, Hx Ulcer Musculoskeltal Medical History: Reports Hx Arthritis - feet Psychiatric Medical History: Reports: Hx Anxiety, Hx Depression Infectious Medical History: Denies: Hx Hepatitis Past Surgical History: Reports: Hx Abdominal Surgery - gastric bypass, Hx Appendectomy - 1966, Hx Cholecystectomy, Hx Gastric Bypass Surgery - 2004, Hx Testicular Surgery. Denies: Hx Open Heart Surgery, Hx Pacemaker - Immunizations Hx Diphtheria, Pertussis, Tetanus Vaccination: Yes Doctor's Discharge - Discharge Referrals: RICHARD FUENTES I, [Primary Care Provider] - Follow up as needed
--- NOTE | 2019-11-27 00:37 | RADIOLOGY REPORT (SQ) ---
XR CHEST 1 VIEW HISTORY: Weakness. COMPARISON: 02/05/2015 FINDINGS: The heart size is within normal limits. There is no pulmonary vascular congestion. There is prominence of the bilateral hilar regions, unchanged from prior study. No consolidation, pleural effusion, or pneumothorax is seen. No acute bony findings are seen. IMPRESSION: 1. No evidence of acute cardiopulmonary disease. 2. Prominent bilateral hilar regions, suggestive of prominent pulmonary vasculature versus adenopathy. This is stable from prior study in 2014.
[2019-11-27 01:13] LABS: ALBUMIN 4.2 g/dL (3.5-5.0); ALKALINE PHOSPHATASE 214 U/L (38-126); ANION GAP 14 (5-19); ASPARTATE AMINO TRANSFERASE 22 U/L (17-59); BILIRUBIN,DIRECT 0.6 mg/dL (0.0-0.4); BILIRUBIN,TOTAL 1.4 mg/dL (0.2-1.3); BLOOD UREA NITROGEN 27 mg/dL (7-20); CALCIUM 9.2 mg/dL (8.4-10.2); CARBON DIOXIDE 22 mmol/L (22-30); CHLORIDE 104 mmol/L (98-107); GLUCOSE 89 mg/dL (75-110); POTASSIUM 4.2 mmol/L (3.6-5.0); TOTAL PROTEIN 7.3 g/dL (6.3-8.2)
[2019-11-27 01:25] LABS: HEMATOCRIT 37.2 % (37.9-51.0); HEMOGLOBIN 12.3 g/dL (13.5-17.0); INTERNATIONAL RATION (INR) 1.21; MEAN CORPUSCULAR VOLUME 85 fl (80-97); PLATELET COUNT 223 10^3/uL (150-450); PROTHROMBIN TIME 15.5 SEC (11.4-15.4); RED BLOOD COUNT 4.39 10^6/uL (4.35-5.55); RED CELL DISTRIBUTION WIDTH 16.6 % (11.5-14.0); WHITE BLOOD COUNT 9.8 10^3/uL (4.0-10.5)
--- NOTE | 2019-11-27 01:46 | ER Document Report ---
ED General - General Chief Complaint: Diarrhea Stated Complaint: RIGHT KNEE PAIN Time Seen by Provider: 11/26/19 22:29 Primary Care Provider: RICHARD FUENTES DO [Primary Care Provider] - Follow up as needed Mode of Arrival: Wheelchair TRAVEL OUTSIDE OF THE [place] IN LAST 30 DAYS: No - HPI Notes: Patient is a 59-year-old male who presents to the emergency department for evaluation. He has chronic right knee pain, a DVT in the right lower extremity. He does have some difficulty with ambulation, some weakness. He lives currently with his brother, niece, and her family. He had to have a bowel movement, did not make it to the bathroom in time. He stooled in his chair, all over the bathroom. They were advised by home health that he should come to the emergency department for evaluation of this. The patient states that he feels no weaker than normal. He has had only 2 episodes of diarrhea. He was able to ambulate from the bed into the cot for EMS, and was able to ambulate here in the emergency department to the bathroom to finish having his bowel movement. He said no chest pain or shortness of breath. He has a home health nurse. He has physical therapy coming to helping with his knee pain this week. - Related Data Allergies/Adverse Reactions: aspirin [Aspirin] Allergy (Unknown, Verified 05/08/17 14:20) Past Medical History - General Information source: Patient, Emergency Med Personnel - Social History Smoking Status: Never Smoker Family History: CAD, DM, Hypertension - Past Medical History Cardiac Medical History: Reports: Hx Hypertension Denies: Hx Heart Attack Pulmonary Medical History: Reports: Hx COPD, Hx Pneumonia Denies: Hx Asthma, Hx Tuberculosis Neurological Medical History: Reports: Hx Cerebrovascular Accident - 1999 right deficitComment Only: Hx Seizures - states no seizure but takes meds for them Endocrine Medical History: Reports: Hx Diabetes Mellitus Type 2 Renal/ Medical History: Reports: Hx Renal Insufficiency - Stage 3. Denies: Hx Peritoneal Dialysis GI Medical History: Reports: Hx Gastroesophageal Reflux Disease. Denies: Hx Hepatitis, Hx Hiatal Hernia, Hx Ulcer Musculoskeletal Medical History: Reports Hx Arthritis - feet Psychiatric Medical History: Reports: Hx Anxiety, Hx Depression Infectious Medical History: Denies: Hx Hepatitis Past Surgical History: Reports: Hx Abdominal Surgery - gastric bypass, Hx Appendectomy - 1966, Hx Cholecystectomy, Hx Gastric Bypass Surgery - 2005, Hx Testicular Surgery. Denies: Hx Open Heart Surgery, Hx Pacemaker - Immunizations Hx Diphtheria, Pertussis, Tetanus Vaccination: Yes Hx Pneumococcal Vaccination: 02/16/12 Review of Systems - Review of Systems Constitutional: See HPI EENT: No symptoms reported Cardiovascular: No symptoms reported Respiratory: No symptoms reported Gastrointestinal: See HPI Genitourinary: No symptoms reported Musculoskeletal: See HPI Skin: No symptoms reported Neurological/Psychological: No symptoms reported -: Yes All other systems reviewed and negative Physical Exam - Notes Notes: This is an obese 59-year-old male who appears his stated age, no acute distress. He does have some dried feces noted on his legs, left greater than right. Vital signs reviewed, please refer to chart. Head is normocephalic, atraumatic. Pupils equal round, reactive to light. Neck is supple without meningismus. Heart is regular rate and rhythm. Lungs are clear to auscultation bilaterally. Abdomen is soft, nontender, normoactive bowel sounds throughout. Extremities without cyanosis, clubbing. Posterior calves are nontender. Peripheral pulses are equal. Skin is warm and dry. Patient is awake, alert, no gross facial asymmetry, moves all 4 extremity spontaneously. He has 4 out of 5 strength bilateral upper and lower extremities. Course - Re-evaluation Re-evalutation: 11/27/19 01:45 Patient presents to the emergency department for evaluation. He complains of right knee pain which is chronic. He states he had some weakness and some diarrhea. He was brought here, cleaned himself up with some assistance. He has no significant changes in his baseline labs. He was able to ambulate here. He is only had 2 episodes of diarrhea. We will give him instructions on diarrhea and close follow-up with his primary care provider. He is amenable to this plan. He is to return to the ED with worsening or new concerning symptoms of any sort. - Laboratory Result Diagrams: 11/27/19 00:30 11/27/19 00:30 Laboratory results interpreted by me: 11/27/19 11/27/19 11/27/19 00:30 00:30 00:30 Hgb 12.3 L Hct 37.2 L RDW 16.6 H PT 15.5 H BUN 27 H Creatinine 2.06 H Est GFR ( Amer) 40 L Est GFR (MDRD) Non-Af 33 L Total Bilirubin 1.4 H Direct Bilirubin 0.6 H Alkaline Phosphatase 214 H - Diagnostic Test Radiology reviewed: Reports reviewed Radiology results interpreted by me: 11/27/19 01:46 Chest X-Ray 11/26/19 22:34 IMPRESSION: 1. No evidence of acute cardiopulmonary disease. 2. Prominent bilateral hilar regions, suggestive of prominent pulmonary vasculature versus adenopathy. This is stable from prior study in 2015. Discharge - Discharge Clinical Impression: Generalized weakness, Chronic pain of right knee Diarrhea Qualifiers: Diarrhea type: unspecified type Qualified Code(s): R19.7 - Diarrhea, unspecified Condition: Stable Disposition: HOME, SELF-CARE Instructions: Diarrhea, Nonspecific ([facility]), Weakness ([facility]) Additional Instructions: Continue your home medications as prescribed. Follow-up with your primary care provider this week. Physical therapy as already prescribed. Return to the emergency department for worsening or new concerning symptoms of any sort. Referrals: RICHARD FUENTES I, [Primary Care Provider] - Follow up as needed
[2019-11-27 01:48] LABS: ABSOLUTE LYMPHOCYTES# (MANUAL) 0.4 10^3/uL (0.5-4.7); ABSOLUTE MONOCYTES # (MANUAL) 0.4 10^3/uL (0.1-1.4); BAND NEUTROPHILS % (MANUAL) 1 % (3-5); BASOPHILS % (MANUAL) 0 % (0-2); EOSINOPHILS % (MANUAL) 1 % (0-6); LYMPHOCYTES % (MANUAL) 4 % (13-45); MONOCYTES % (MANUAL) 4 % (3-13); SEGMENTED NEUTROPHILS % (MAN) 90 % (42-78); TOTAL CELLS COUNTED 100
[2019-11-27 01:50] LABS: ANISOCYTOSIS 1+; OVALOCYTES SLIGHT; PLATELET COMMENT ADEQUATE; TOXIC GRANULATION SLIGHT
--- NOTE | 2019-11-28 19:47 | EKG REPORT ---
SEVERITY:- ABNORMAL ECG - SINUS RHYTHM FIRST DEGREE AV BLOCK BORDERLINE LEFT AXIS DEVIATION LOW VOLTAGE IN FRONTAL LEADS BORDERLINE T ABNORMALITIES, INFERIOR LEADS : Confirmed by: Amilcar Burris 28-Nov-2019 19:47:01
== END 2019-11-27 02:27 | disposition home or self-care (01) ==
LOC: ER 22:14
DX: R53.1 Weakness (principal); M25.561 Pain in right knee; G89.29 Other chronic pain; R19.7 Diarrhea, unspecified; R32 Unspecified urinary incontinence; Z86.718 Personal history of other venous thrombosis and embolism; Z99.81 Dependence on supplemental oxygen; Z88.8 Allergy status to other drugs, medicaments and biological substances; Z79.899 Other long term (current) drug therapy; Z79.01 Long term (current) use of anticoagulants
CPT/HCPCS: 36415; 71045; 80053; 84484; 85025; 85610; 93005; 93010; 99284

== ENCOUNTER 2019-11-28 11:43 | Emergency (ER) | payer MEDICARE, MEDICAID ==
[2019-11-28 12:30] LABS: HEMATOCRIT 32.2 % (37.9-51.0); HEMOGLOBIN 10.7 g/dL (13.5-17.0); MEAN CORPUSCULAR HEMOGLOBIN 28.2 pg (27.0-33.4); MEAN CORPUSCULAR HGB CONC 33.3 g/dL (32.0-36.0); MEAN CORPUSCULAR VOLUME 85 fl (80-97); PLATELET COUNT 199 10^3/uL (150-450); RED BLOOD COUNT 3.81 10^6/uL (4.35-5.55); RED CELL DISTRIBUTION WIDTH 16.3 % (11.5-14.0); WHITE BLOOD COUNT 8.4 10^3/uL (4.0-10.5)
[2019-11-28 12:47] LABS: ALBUMIN 3.5 g/dL (3.5-5.0); ALKALINE PHOSPHATASE 183 U/L (38-126); ANION GAP 12 (5-19); ASPARTATE AMINO TRANSFERASE 23 U/L (17-59); BILIRUBIN,DIRECT 0.5 mg/dL (0.0-0.4); BILIRUBIN,TOTAL 1.1 mg/dL (0.2-1.3); BLOOD UREA NITROGEN 24 mg/dL (7-20); CALCIUM 8.9 mg/dL (8.4-10.2); CARBON DIOXIDE 21 mmol/L (22-30); CHLORIDE 107 mmol/L (98-107); CREATINE KINASE 55 U/L (55-170); GLUCOSE 89 mg/dL (75-110); TOTAL PROTEIN 6.3 g/dL (6.3-8.2)
[2019-11-28 12:58] LABS: CREATINE KINASE MB 0.82 ng/mL (<4.55); TROPONIN I 0.025 ng/mL
[2019-11-28 13:04] LABS: ABSOLUTE LYMPHOCYTES# (MANUAL) 0.3 10^3/uL (0.5-4.7); ABSOLUTE MONOCYTES # (MANUAL) 0.4 10^3/uL (0.1-1.4); BASOPHILS % (MANUAL) 0 % (0-2); EOSINOPHILS % (MANUAL) 0 % (0-6); LYMPHOCYTES % (MANUAL) 4 % (13-45); MONOCYTES % (MANUAL) 5 % (3-13); SEGMENTED NEUTROPHILS % (MAN) 91 % (42-78); TOTAL CELLS COUNTED 100
[2019-11-28 13:05] LABS: ANISOCYTOSIS SLIGHT; BURR CELLS SLIGHT; PLATELET COMMENT ADEQUATE; POIKILOCYTOSIS SLIGHT
--- NOTE | 2019-11-28 14:28 | ER Document Report ---
ED General - General Chief Complaint: General Weakness Stated Complaint: WEAKNESS Time Seen by Provider: 11/28/19 13:06 Primary Care Provider: RICHARD FUENTES DO [Primary Care Provider] - Follow up as needed TRAVEL OUTSIDE OF THE [place] IN LAST 30 DAYS: No - HPI Notes: Chief complaint: Right knee pain and difficulty with ambulation History of present illness: Mr. Silva is a 59-year-old male who presents to the emergency department for evaluation within 24 hours of prior visit. He has chronic right knee pain, a DVT in the right lower extremity. He does have some difficulty with ambulation, some generalized weakness. He is previously been ambulatory with a cane. He says he fell again within the last 24 hours and is complaining of difficulty bearing weight on the right knee. He feels that he needs to be in a longterm at this time and specifically requests consultation with discharge planning service here. He is routinely followed by [facility]. He says he is talked with his primary care provider there and he was advised to come back to the emergency department. He lives currently with his brother, niece, and her family. He is having a lot of trouble getting to the bathroom and has soiled himself several times because of mechanical difficulty with moving himself to the bathroom. Patient is currently receiving home health nursing services. They were advised by home health that he should come to the emergency department for evaluation of this. The patient states that he feels no weaker than normal. He denies any abdominal pain. He denies any blood per rectum or dark-colored stools. He denies any vomiting. He denies any syncope or presyncope. Patient is chronically on 3 L of nasal O2 at home. - Related Data Allergies/Adverse Reactions: aspirin [Aspirin] Allergy (Unknown, Verified 05/08/17 14:20) Home Medications: Amitriptyline, Amlodipine, Atorvastatin, Dexilant, Eliquis, Ferrous sulfate, lasix, glipizide, hydrazine, januvia, levothyroxine, losartan, metoprolol. Past Medical History - General Information source: Patient, Relative, [facility] Records - Social History Smoking Status: Never Smoker Frequency of alcohol use: None Drug Abuse: None Lives with: Family Family History: CAD, DM, Hypertension Patient has homicidal ideation: No - Past Medical History Cardiac Medical History: Reports: Hx DVT, Hx Hypertension Denies: Hx Heart Attack Pulmonary Medical History: Reports: Hx COPD, Hx Pneumonia Denies: Hx Asthma, Hx Tuberculosis Neurological Medical History: Reports: Hx Cerebrovascular Accident - 1999 right deficitComment Only: Hx Seizures - states no seizure but takes meds for them Endocrine Medical History: Reports: Hx Diabetes Mellitus Type 2 Renal/ Medical History: Reports: Hx End Stage Renal Disease - stage 3, Hx Renal Insufficiency - Stage 3. Denies: Hx Peritoneal Dialysis GI Medical History: Reports: Hx Gastroesophageal Reflux Disease. Denies: Hx Hepatitis, Hx Hiatal Hernia, Hx Ulcer Musculoskeletal Medical History: Reports Hx Arthritis - feet Psychiatric Medical History: Reports: Hx Anxiety, Hx Depression Infectious Medical History: Denies: Hx Hepatitis Past Surgical History: Reports: Hx Abdominal Surgery - gastric bypass, Hx Appendectomy - 1966, Hx Cholecystectomy, Hx Gastric Bypass Surgery - 2004, Hx Testicular Surgery. Denies: Hx Open Heart Surgery, Hx Pacemaker - Immunizations Hx Diphtheria, Pertussis, Tetanus Vaccination: Yes Hx Pneumococcal Vaccination: 02/16/12 Review of Systems - Review of Systems Notes: Constitutional: Negative for fever. HENT: Negative for sore throat. Eyes: Negative for visual changes. Cardiovascular: Negative for chest pain. Respiratory: Negative for shortness of breath. Gastrointestinal: Negative for abdominal pain, vomiting or diarrhea. Genitourinary: Negative for dysuria. Musculoskeletal: As per HPI. Skin: Negative for rash. Neurological: Negative for headaches, focal weakness or numbness. 10 point ROS negative except as marked above and in HPI. Physical Exam - Vital signs Vitals: Temp 97.6 F 11/28/19 12:01 - Notes Notes: GENERAL: Obese chronically ill-appearing elderly male. Somewhat disheveled. SKIN: Good turgor no rashes. HEAD: Normocephalic atraumatic. EYES: PERRLA. EOMI. Conjunctivae and sclerae clear. EARS: CANALS AND TMS CLEAR. NOSE: CLEAR. MOUTH: Moist mucosa. Good dentition. No stridor or edema. No drooling. NECK: Supple. No masses or thyromegaly. No adenopathy. Carotids 2+ without bruits. No JVD. BACK: Symmetrical without tenderness. CHEST: Respirations unlabored. Breath sounds clear and symmetrical. HEART: Regular rhythm. No murmur gallop or rub. ABDOMEN: Obese soft nontender without masses, organomegaly or rebound. Bowel sounds normally active. No bruits. GENITALIA: Deferred. EXTREMITIES: 1+ bilateral pretibial edema. Diffuse tenderness over right knee. Decreased range of motion. No gross ligamentous instability. No palpable effusion or step-off. He does have prominent crepitus of both knees. No calf tenderness. Cap refill less than 1.5 seconds. Dorsalis pedis and posterior tibial pulses 3+ and symmetrical. NEUROLOGICAL: GCS 15. Alert and oriented x3. Fluent speech. Cranial nerves II through XII intact. Sensorimotor and cerebellar normal. Normal tone. PSYCHIATRIC: Appropriate affect. Course - Vital Signs Vital signs: Temp Pulse Resp BP Pulse Ox 97.9 F 74 16 141/69 H 96 11/29/19 00:18 11/29/19 00:18 11/29/19 10:20 11/29/19 00:18 11/29/19 00:18 - Laboratory Result Diagrams: 11/28/19 12:15 11/28/19 12:15 Laboratory results interpreted by me: 11/28/19 11/28/19 11/28/19 12:15 12:15 23:30 RBC 3.81 L Hgb 10.7 L Hct 32.2 L RDW 16.3 H Seg Neuts % (Manual) 91 H Lymphocytes % (Manual) 4 L Abs Lymphs (Manual) 0.3 L Carbon Dioxide 21 L BUN 24 H Creatinine 2.11 H Est GFR ( Amer) 39 L Est GFR (MDRD) Non-Af 32 L Direct Bilirubin 0.5 H Alkaline Phosphatase 183 H Urine Protein 100 H Urine Ketones TRACE H Urine Urobilinogen 4.0 H Ur Leukocyte Esterase TRACE H - Diagnostic Test Radiology reviewed: Reports reviewed - Plain films right knee per radiologist: Advanced degenerative changes without fracture or dislocation. - EKG Interpretation by Me Additional EKG results interpreted by me: 11/28/19 15:47 Twelve-lead EKG reviewed by me contemporaneously: 1502 hrs. Indication for study: Weakness Rhythm: Normal sinus Rate: 69 Intervals: TN interval 276 ms consistent with first-degree AV block other intervals are normal. QRS axis: -[address]/T wave changes: Nonspecific T wave changes without ST shift Comparison with prior tracing: No prior EKG for comparison Interpretation: First-degree AV block and leftward axis with nonspecific T wave changes. Discharge - Discharge Clinical Impression: Osteoarthritis of knees, bilateral Qualifiers: Osteoarthritis type: unspecified Qualified Code(s): M17.0 - Bilateral primary osteoarthritis of knee Disposition: HOME, SELF-CARE Referrals: RICHARD FUENTES DO [Primary Care Provider] - Follow up as needed
--- NOTE | 2019-11-28 15:38 | RADIOLOGY REPORT (SQ) ---
EXAM DESCRIPTION: KNEE RIGHT 3 VIEWS IMAGES COMPLETED DATE/TIME: 11/28/2019 3:29 pm REASON FOR STUDY: trauma COMPARISON: None. NUMBER OF VIEWS: Three views. TECHNIQUE: AP, lateral, and sunrise patella radiographic images acquired of the right knee. LIMITATIONS: None. FINDINGS: MINERALIZATION: Normal. BONES: No acute fracture or dislocation. No worrisome bone lesions. JOINT: There is a small joint effusion. Mild narrowing of the medial joint compartment. SOFT TISSUES: No soft tissue swelling. No radio-opaque foreign body. OTHER: No other significant finding. IMPRESSION: Medial degenerative joint changes with small joint effusion. No fracture or other acute osseous finding. TECHNICAL DOCUMENTATION: JOB ID: [id number] 2010 [employer]- All Rights Reserved Reading location - IP/workstation name: [email or web address]
[2019-11-28] MEDS ORDERED: ACETAMINOPHEN 325 MG TABLET PO ONE ×2 (16:46)
--- NOTE | 2019-11-28 19:48 | EKG REPORT ---
SEVERITY:- ABNORMAL ECG - SINUS RHYTHM LAD, CONSIDER LEFT ANTERIOR FASCICULAR BLOCK LOW VOLTAGE THROUGHOUT NONSPECIFIC T ABNORMALITIES, DIFFUSE LEADS : Confirmed by: Amilcar Burris 28-Nov-2019 19:47:47
[2019-11-29 01:23] LABS: APPEARANCE,URINE CLOUDY; BILIRUBIN,URINE NEGATIVE (NEGATIVE); COLOR,URINE AMBER; GLUCOSE, URINE NEGATIVE (NEGATIVE); KETONES,URINE TRACE mg/dL (NEGATIVE); LEUKOCYTE ESTERASE,URINE TRACE (NEGATIVE); NITRITE,URINE NEGATIVE (NEGATIVE); PROTEIN,URINE 100 mg/dL (NEGATIVE); URINE SPECIFIC GRAVITY 1.018
[2019-11-29] MEDS ORDERED: ONDANSETRON 4 MG TAB.RAPDIS PO ONE (17:19)
--- NOTE | 2019-11-29 17:21 | ER Document Report ---
Doctor's Note Notes: 11/29/19 17:20 Patient reassessed just now. He is resting comfortably in the bed sleeping. He was easily awoken. He states his been having some nausea and appreciate some nausea medicine. He also asked that I raise the head of the bed which I did and he states he feels more comfortable now. Patient has permanent placement arranged for tomorrow afternoon. Patient's daily medications of also all been ordered.
[2019-11-29] MEDS: SITAGLIPTIN PHOSPHATE 50 MG TABLET PO SCH (19:58)
[2019-11-29] MEDS: LOSARTAN POTASSIUM 50 MG TABLET PO SCH ×2 (19:58→20:22)
[2019-11-29] MEDS: FUROSEMIDE 40 MG TABLET PO SCH (19:59)
[2019-11-29] MEDS: AMLODIPINE BESYLATE 5 MG TABLET PO SCH ×2 (19:59→20:23)
[2019-11-29] MEDS: FERROUS SULFATE 325 MG TABLET PO SCH (20:00)
[2019-11-29] MEDS: ATORVASTATIN CALCIUM 20 MG TABLET PO SCH (20:00)
[2019-11-29] MEDS: GLIPIZIDE 5 MG TABLET PO SCH (20:01)
[2019-11-29] MEDS: APIXABAN 2.5 MG TABLET PO SCH (22:09)
[2019-11-29] MEDS: CETIRIZINE 10 MG TABLET PO SCH (22:10)
[2019-11-29] MEDS: PANTOPRAZOLE SODIUM 40 MG TABLET.DR PO SCH (22:11)
[2019-11-29] MEDS: AMITRIPTYLINE HCL 50 MG TABLET PO SCH (22:13)
[2019-11-29] MEDS: HYDRALAZINE HCL 50 MG TABLET PO SCH (22:18)
[2019-11-29] MEDS: METOPROLOL SUCCINATE 25 MG TAB.SR.24H PO SCH (22:22)
[2019-11-30] MEDS: LEVOTHYROXINE SODIUM 0.075 MG TABLET PO SCH (06:15)
[2019-11-30] MEDS: HYDRALAZINE HCL 50 MG TABLET PO SCH ×3 (06:22→22:40)
[2019-11-30] MEDS: LOSARTAN POTASSIUM 50 MG TABLET PO SCH (10:00)
[2019-11-30] MEDS ORDERED: FUROSEMIDE 20 MG TABLET PO SCH (10:00)
[2019-11-30] MEDS ORDERED: AMLODIPINE BESYLATE 10 MG TABLET PO SCH (10:00)
[2019-11-30] MEDS: FUROSEMIDE 40 MG TABLET PO SCH (10:00)
[2019-11-30] MEDS: GLIPIZIDE 5 MG TABLET PO SCH ×2 (10:01→18:03)
[2019-11-30] MEDS: AMLODIPINE BESYLATE 5 MG TABLET PO SCH (10:01)
[2019-11-30] MEDS: FERROUS SULFATE 325 MG TABLET PO SCH ×2 (10:01→18:04)
[2019-11-30] MEDS: SITAGLIPTIN PHOSPHATE 50 MG TABLET PO SCH (10:02)
[2019-11-30] MEDS: APIXABAN 2.5 MG TABLET PO SCH ×2 (10:03→22:41)
[2019-11-30] MEDS: ATORVASTATIN CALCIUM 20 MG TABLET PO SCH (18:03)
--- NOTE | 2019-11-30 18:09 | ER Document Report ---
Doctor's Note Notes: 11/30/19 18:08 Case management/social work tells me the patient will be going to [facility] sometime tomorrow. I checked in on the patient, he states he is doing well and is appreciative of our efforts to help find him placement.
[2019-11-30] MEDS: METOPROLOL SUCCINATE 25 MG TAB.SR.24H PO SCH (22:41)
[2019-11-30] MEDS: CETIRIZINE 10 MG TABLET PO SCH (22:41)
[2019-11-30] MEDS: AMITRIPTYLINE HCL 50 MG TABLET PO SCH (22:41)
[2019-11-30] MEDS: PANTOPRAZOLE SODIUM 40 MG TABLET.DR PO SCH (22:42)
[2019-12-01] MEDS: LEVOTHYROXINE SODIUM 0.075 MG TABLET PO SCH (05:59)
[2019-12-01] MEDS: HYDRALAZINE HCL 50 MG TABLET PO SCH ×3 (05:59→22:00)
[2019-12-01] MEDS: SITAGLIPTIN PHOSPHATE 50 MG TABLET PO SCH (10:44)
[2019-12-01] MEDS: FERROUS SULFATE 325 MG TABLET PO SCH ×2 (10:45→18:01)
[2019-12-01] MEDS: GLIPIZIDE 5 MG TABLET PO SCH ×2 (10:45→18:01)
[2019-12-01] MEDS: LOSARTAN POTASSIUM 50 MG TABLET PO SCH (10:45)
[2019-12-01] MEDS: FUROSEMIDE 40 MG TABLET PO SCH (10:45)
[2019-12-01] MEDS: AMLODIPINE BESYLATE 5 MG TABLET PO SCH (10:45)
[2019-12-01] MEDS: APIXABAN 2.5 MG TABLET PO SCH ×2 (10:45→21:59)
[2019-12-01] MEDS: ATORVASTATIN CALCIUM 20 MG TABLET PO SCH (18:01)
--- NOTE | 2019-12-01 18:16 | ER Document Report ---
Doctor's Note Notes: 12/01/19 18:15 Patient is doing well today. The latest information case management is hopefully the patient will go tomorrow to the shelter. They are waiting on special paperwork to be filled in and sent back by state employees. I was told this about 3 PM today, I felt that it was unlikely that it would be done this late on a Wednesday but maybe it will get done and he will go to the shelter tomorrow.
[2019-12-01] MEDS: METOPROLOL SUCCINATE 25 MG TAB.SR.24H PO SCH (21:59)
[2019-12-01] MEDS: CETIRIZINE 10 MG TABLET PO SCH (21:59)
[2019-12-01] MEDS: PANTOPRAZOLE SODIUM 40 MG TABLET.DR PO SCH (21:59)
[2019-12-01] MEDS: AMITRIPTYLINE HCL 50 MG TABLET PO SCH (21:59)
[2019-12-02] MEDS: HYDRALAZINE HCL 50 MG TABLET PO SCH ×3 (06:02→23:01)
[2019-12-02] MEDS: LEVOTHYROXINE SODIUM 0.075 MG TABLET PO SCH (06:10)
[2019-12-02] MEDS: FERROUS SULFATE 325 MG TABLET PO SCH ×2 (09:58→18:20)
[2019-12-02] MEDS: SITAGLIPTIN PHOSPHATE 50 MG TABLET PO SCH (09:58)
[2019-12-02] MEDS: AMLODIPINE BESYLATE 5 MG TABLET PO SCH (09:58)
[2019-12-02] MEDS: LOSARTAN POTASSIUM 50 MG TABLET PO SCH (09:58)
[2019-12-02] MEDS: APIXABAN 2.5 MG TABLET PO SCH ×2 (09:58→23:01)
[2019-12-02] MEDS: GLIPIZIDE 5 MG TABLET PO SCH ×2 (09:58→18:20)
[2019-12-02] MEDS: FUROSEMIDE 40 MG TABLET PO SCH (09:58)
[2019-12-02] MEDS: ATORVASTATIN CALCIUM 20 MG TABLET PO SCH (18:20)
[2019-12-02] MEDS: CETIRIZINE 10 MG TABLET PO SCH (23:00)
[2019-12-02] MEDS: PANTOPRAZOLE SODIUM 40 MG TABLET.DR PO SCH (23:00)
[2019-12-02] MEDS: AMITRIPTYLINE HCL 50 MG TABLET PO SCH (23:00)
[2019-12-02] MEDS: METOPROLOL SUCCINATE 25 MG TAB.SR.24H PO SCH (23:01)
[2019-12-03] MEDS: LEVOTHYROXINE SODIUM 0.075 MG TABLET PO SCH (07:08)
[2019-12-03] MEDS: HYDRALAZINE HCL 50 MG TABLET PO SCH ×3 (07:08→21:28)
[2019-12-03] MEDS: SITAGLIPTIN PHOSPHATE 50 MG TABLET PO SCH (09:29)
[2019-12-03] MEDS: AMLODIPINE BESYLATE 5 MG TABLET PO SCH (09:33)
[2019-12-03] MEDS: LOSARTAN POTASSIUM 50 MG TABLET PO SCH (09:34)
[2019-12-03] MEDS: FERROUS SULFATE 325 MG TABLET PO SCH ×2 (09:34→18:11)
[2019-12-03] MEDS: FUROSEMIDE 40 MG TABLET PO SCH (09:34)
[2019-12-03] MEDS: GLIPIZIDE 5 MG TABLET PO SCH ×2 (09:34→18:11)
[2019-12-03] MEDS: APIXABAN 2.5 MG TABLET PO SCH ×2 (09:35→21:15)
[2019-12-03] MEDS: ATORVASTATIN CALCIUM 20 MG TABLET PO SCH (18:09)
[2019-12-03] MEDS: AMITRIPTYLINE HCL 50 MG TABLET PO SCH (21:14)
[2019-12-03] MEDS: CETIRIZINE 10 MG TABLET PO SCH (21:15)
[2019-12-03] MEDS: PANTOPRAZOLE SODIUM 40 MG TABLET.DR PO SCH (21:15)
[2019-12-03] MEDS: METOPROLOL SUCCINATE 25 MG TAB.SR.24H PO SCH (21:28)
[2019-12-04] MEDS: HYDRALAZINE HCL 50 MG TABLET PO SCH (05:29)
[2019-12-04] MEDS: LEVOTHYROXINE SODIUM 0.075 MG TABLET PO SCH (06:40)
[2019-12-04] MEDS ORDERED: ONDANSETRON 4 MG TAB.RAPDIS PO ONE (06:42)
[2019-12-04] MEDS: SITAGLIPTIN PHOSPHATE 50 MG TABLET PO SCH (10:05)
[2019-12-04] MEDS: LOSARTAN POTASSIUM 50 MG TABLET PO SCH (10:06)
[2019-12-04] MEDS: APIXABAN 2.5 MG TABLET PO SCH (10:06)
[2019-12-04] MEDS: GLIPIZIDE 5 MG TABLET PO SCH (10:07)
[2019-12-04] MEDS: FUROSEMIDE 40 MG TABLET PO SCH (10:07)
[2019-12-04] MEDS: FERROUS SULFATE 325 MG TABLET PO SCH (10:08)
[2019-12-04] MEDS: AMLODIPINE BESYLATE 5 MG TABLET PO SCH (10:08)
--- NOTE | 2019-12-04 11:37 | ER Document Report ---
Doctor's Note Notes: 12/04/19 11:36 Patient was seen and evaluated by me this morning. He is resting comfortably in the bed. He had just finished using a urinal without problem. He had also eaten breakfast without problems. He denies any problems or issues this morning. He has been accepted at an extended care facility. Ambulance transpo rtation will be here in approximately 20 minutes. He was informed of all of this and denies any issues concerns or problems at this time and is in agreement with the disposition.
[2019-12-04 11:56] VITALS: BP 112/60
== END 2019-12-04 11:56 | disposition home health service (06) ==
LOC: ER 11:43
DX: M17.0 Bilateral primary osteoarthritis of knee (principal); I82.401 Acute embolism and thrombosis of unspecified deep veins of right lower extremity; R53.1 Weakness; R26.2 Difficulty in walking, not elsewhere classified; E66.9 Obesity, unspecified; I10 Essential (primary) hypertension; J44.9 Chronic obstructive pulmonary disease, unspecified; E11.9 Type 2 diabetes mellitus without complications; F32.9 Major depressive disorder, single episode, unspecified; Z79.84 Long term (current) use of oral hypoglycemic drugs; Z79.899 Other long term (current) drug therapy; Z79.01 Long term (current) use of anticoagulants; Z98.84 Bariatric surgery status; Z75.1 Person awaiting admission to adequate facility elsewhere; Z99.81 Dependence on supplemental oxygen; Z88.8 Allergy status to other drugs, medicaments and biological substances
CPT/HCPCS: 93005; 99285; 36415; 82553; 82962; 82550; 85025; 80053; 81001; 84484; 73562; 93010; A9270 ×74; J3490; S0119